=== PATIENT | female | born 1995 | race Caucasian/White ===

== ENCOUNTER 2018-02-12 19:19 | Emergency (ER) | payer BC ==
[2018-02-12 20:37] VITALS: BP 120/69
--- NOTE | 2018-02-12 20:55 | UC ---
Hand/Wrist HPI - HPI Summary HPI Summary: Patient had her right wrist and hand on a wall last I will sleeping complains of pain and swelling into her wrist. Range of motion no skin or superficial injury observed - History Of Current Complaint Chief Complaint: UCUpperExtremity Stated Complaint: R HAND/WRIST INJURY Time Seen by Provider: 02/12/18 20:52 Hx Obtained From: Patient Hx Last Menstrual Period: 01/29/18 ?: No Mechanism Of Injury: hit right hand on the wall Onset/Duration: Sudden Onset Severity Initially: Moderate Severity Currently: Moderate Pain Intensity: 7 Pain Scale Used: 0-10 Numeric Character Of Pain: Aching Aggravating Factor(s): Movement Alleviating Factor(s): Nothing Associated Signs And Symptoms: Positive: Swelling, Bruising Related History: Dominant Hand Right - Allergies/Home Medications Allergies/Adverse Reactions: Allergies Allergy/AdvReac Type Severity Reaction Status Date / Time No Known Allergies Allergy Verified 02/12/18 20:33 Home Medications: Home Medications Oral Contraceptive 1 tab PO DAILY 02/12/18 [History Confirmed 02/12/18] Ranitidine TAB (NF) [Zantac TAB (NF)] 150 mg PO BID 02/12/18 [History Confirmed 02/12/18] PMH/Surg Hx/FS Hx/Imm Hx Previously Healthy: No GI/ History: Gastroesophageal Reflux - Surgical History Surgical History: Yes Surgery Procedure, Year, and Place: Left Shoulder surgery - Family History Known Family History: Positive: None - Social History Occupation: Employed Full-time Lives: With Family Alcohol Use: Occasionally Substance Use Type: None Smoking Status (MU): Former Smoker Type: Cigarettes Amount Used/How Often: 2 packs per week Length of Time of Smoking/Using Tobacco: 3 years Have You Smoked in the Last Year: Yes When Did the Patient Quit Smoking/Using Tobacco: Quit 4 months ago Review of Systems Constitutional: Negative Skin: Negative Eyes: Negative ENT: Negative Respiratory: Negative Cardiovascular: Negative Gastrointestinal: Negative Genitourinary: Negative Motor: Negative Neurovascular: Negative Musculoskeletal: Arthralgia - Right hand and wrist pain Neurological: Negative Psychological: Negative Is Patient Immunocompromised?: No All Other Systems Reviewed And Are Negative: Yes Physical Exam Triage Information Reviewed: Yes Appearance: Well-Appearing, No Pain Distress, Well-Nourished Vital Signs: Initial Vital Signs Temp 98.8 F 02/12/18 20:31 Pulse 67 02/12/18 20:31 Resp 14 02/12/18 20:31 BP 120/69 02/12/18 20:31 Pulse Ox 100 02/12/18 20:31 Vital Signs Reviewed: Yes Eye Exam: Normal Eyes: Positive: Conjunctiva Clear ENT Exam: Normal ENT: Positive: Normal ENT inspection, Hearing grossly normal. Negative: Nasal congestion, Trismus, Muffled voice, Hoarse voice Dental Exam: Normal Neck exam: Normal Neck: Positive: Supple, Nontender Respiratory Exam: Normal Respiratory: Positive: Chest non-tender, No respiratory distress, No accessory muscle use Cardiovascular Exam: Normal Cardiovascular: Positive: RRR, Pulses Normal, Brisk Capillary Refill Musculoskeletal Exam: Other Musculoskeletal: Positive: ROM Intact, No Edema, Strength Limited @ - Patient states strength in right hand is limited due to pain Neurological Exam: Normal Neurological: Positive: Alert, Muscle Tone Normal Psychological Exam: Normal Skin Exam: Normal Diagnostics - Radiology No standard instances Xray Interpretation: No Acute Changes Radiology Interpretation Completed By: Radiologist Hand/Wrist Course/Dx - Course Course Of Treatment: Geovanny wrap applied, rest ice elevation, ibuprofen on fork for a couple days as patient provides correct personal-care and feels that she can safely lift her transfer her residence - Differential Dx/Diagnosis Provider Diagnoses: Contusion right hand and wrist Discharge - Sign-Out/Discharge Documenting (check all that apply): Discharge/Admit/Transfer - Discharge Plan Condition: Stable Disposition: HOME Patient Education Materials: Ibuprofen (By mouth), Contusion in Adults (ED), R.I.C.E. Treatment (ED) Forms: *Work Release Referrals: Mesfin Allen MD [Medical Doctor] - If Needed - Billing Disposition and Condition Condition: STABLE Disposition: HOME
--- NOTE | 2018-02-12 21:59 | RAD ---
Indication: Right hand injury. 4 views of the right hand demonstrates no definite fracture noted. There is a radiopaque foreign body in the soft tissues of the radial aspect of the proximal phalanx of the third digit. IMPRESSION: No fracture is noted. Foreign body in the soft tissues in the radial aspect of the third digit in the proximal phalanx region.
--- NOTE | 2018-02-12 22:06 | RAD ---
Indication: Right wrist injury 3 views of the wrist demonstrates no fracture. No other bone or joint abnormality is identified. IMPRESSION: NO FRACTURE OF THE WRIST IS NOTED.
== END 2018-02-12 22:21 | disposition home or self-care (01) ==
LOC: UCCORT 19:19
DX: S60.211A Contusion of right wrist, initial encounter (principal); W22.8XXA Striking against or struck by other objects, initial encounter; Y92.9 Unspecified place or not applicable; Z87.891 Personal history of nicotine dependence
CPT/HCPCS: 99212; G0463

== ENCOUNTER 2018-07-05 14:25 | Emergency (ER) | payer SELFPAY ==
[2018-07-05] MEDS ORDERED: Tetan/Diph/Pertus SYR(Tdap)* 0.5 ML SYR(BOOSTRIX) use SYR IM ONE (15:15)
[2018-07-05 15:21] VITALS: BP 133/62
--- NOTE | 2018-07-05 15:22 | UC ---
Laceration HPI - HPI Summary HPI Summary: 23-year-old female presents with a laceration to her left palmar middle finger. States she accidentally cut it on the edge of an aluminum can. Bleeding was controlled with direct pressure. Denies numbness, tingling or loss of range of motion. Unsure last tetanus. - History Of Current Complaint Stated Complaint: WC-LACERATION LEFT MIDDLE FINGER Time Seen by Provider: 07/05/18 15:13 Hx Obtained From: Patient Hx Last Menstrual Period: 01/29/18 Laceration Location: Hand - Left middle finger Mechanism Of Injury: Sharp Trauma - Edge of aluminum can Aggravating Factors: Nothing Hands: 1 - 1 cm superficial flap laceration Related History: Dominant Hand Right - Allergies/Home Medications Allergies/Adverse Reactions: Allergies Allergy/AdvReac Type Severity Reaction Status Date / Time ibuprofen Allergy Unknown RASH ON Verified 07/05/18 15:10 NECK, HARD TO SWALLOW Home Medications: Home Medications Amphetamine MIXED SALTS TAB* [Adderall TAB*] 15 mg PO DAILY 07/05/18 [History Confirmed 07/05/18] Apri- Oral Contraceptive 1 tab PO DAILY 07/05/18 [History] Sertraline* [Zoloft*] 100 mg PO DAILY 07/05/18 [History Confirmed 07/05/18] PMH/Surg Hx/FS Hx/Imm Hx Previously Healthy: Yes GI/ History: Gastroesophageal Reflux Psychological History: Anxiety Other Psychological History: ADHD - Surgical History Surgical History: Yes Surgery Procedure, Year, and Place: Left Shoulder surgery - Family History Family History: Noncontributory - Social History Occupation: Employed Full-time Lives: With Family Alcohol Use: Occasionally Substance Use Type: None Smoking Status (MU): Former Smoker Type: Cigarettes Amount Used/How Often: 2 packs per week Length of Time of Smoking/Using Tobacco: 3 years Have You Smoked in the Last Year: Yes When Did the Patient Quit Smoking/Using Tobacco: Quit 4 months ago - Immunization History Immunizations Comment: unsure last tetanus Review of Systems Constitutional: Negative Skin: Other - See history of present illness Motor: Negative Neurovascular: Negative Musculoskeletal: Negative Is Patient Immunocompromised?: No All Other Systems Reviewed And Are Negative: Yes Physical Exam Triage Information Reviewed: Yes Appearance: Well-Appearing, No Pain Distress, Well-Nourished Vital Signs Reviewed: Yes Respiratory: Positive: No respiratory distress Cardiovascular: Positive: Pulses Normal, Brisk Capillary Refill Musculoskeletal: Positive: Strength Intact, ROM Intact - Flexion and extension to resistance intact Neurological: Positive: Alert, Other: - Sensation intact distally Skin: Positive: significant lesion(s) - 1 cm superficial laceration to palmar aspect of left middle finger immediately superior to the DIP. Laceration Repair - Laceration Repair 1 Description: Linear Laceration Size After Repair: Length (cm) - 1 Modified For Repair: No Cleansing Completed Via Routine Prep: Yes Irrigation With Pressure Irrigation Device: Yes Closure Material: Skin Adhesive, SteriStrips - Single 1/8 inch Steri-strip Laceration Course/Dx - Course/Dx Course Of Treatment: 23-year-old female presents with a superficial laceration of her left middle finger on the palmar aspect immediately superior to the DIP. Laceration occurred from sharp edge of a aluminum can. Flexion and extension to resistance intact. Sensation intact distally. Wound was cleansed and then repaired using skin adhesive and a single 1/8 inch Steri-strip. Patient was placed in a volar finger splint to allow for healing. Wound care and warning signs of infection were discussed with the patient. Verbalizes understanding and agrees with plan of care. - Differential Dx - Laceration/Wound Provider Diagnoses: Superficial laceration left middle finger Discharge - Sign-Out/Discharge Documenting (check all that apply): Patient Departure All imaging exams completed and their final reports reviewed: No Studies - Discharge Plan Condition: Stable Disposition: HOME Patient Education Materials: Laceration (ED), Skin Adhesive Care (ED) Referrals: Kaitlynn Smith MD [Primary Care Provider] - If Needed Additional Instructions: The laceration to your left middle finger was repaired today using a skin adhesive and Steri-Strip. Do not get this wet for at least 24 hours. After 24 hours you may go ahead and shower and wash your hands as normal. Keep the wound covered with a bandage to avoid contamination. Do not apply any ointments or lotions as this could dissolve the adhesive can cause reopening of the wound. The Steri-Strip will slowly start to peel up from the ends. You may trim the ends but do not pull the Steri-strip as this may cause a reopening of the wound. Your tetanus was updated today. Be sure to notify your primary care provider so (s)he can update their records. Watch for signs of infection including fever greater than 100.5 F, increased pain, redness that spreads, swelling of the finger, or pus draining from the wound. Seek immediate medical attention should any of these occur. - Billing Disposition and Condition Condition: STABLE Disposition: Home
== END 2018-07-05 16:10 | disposition home or self-care (01) ==
LOC: UCCORT 14:25
DX: S61.213A Laceration without foreign body of left middle finger without damage to nail, initial encounter (principal); Z87.891 Personal history of nicotine dependence; W26.8XXA Contact with other sharp object(s), not elsewhere classified, initial encounter; Y93.9 Activity, unspecified; Y92.9 Unspecified place or not applicable
CPT/HCPCS: 12001; 90471; 90715; 99212; G0463

== ENCOUNTER 2019-11-26 11:11 | Emergency (ER) | payer BC ==
--- OUTSIDE RECORDS SUMMARY | 2019-11-26 11:18 | XMS REPORT | Continuity of Care Document ---
:1995 External Reference #:[id number] Author Name Cathy Patel, PNP-BC, IT SUPPORT ANALYST, [facility] Address [address] [place] [address] Care Team Providers Name Role Phone Kaitlynn Smith MD - Pediatrics Care Team Information Nurseryperson [phone] [facility] Care Team Information Nurseryperson pc - Physical Therapy Cathy Patel PNP-BC, IT SUPPORT ANALYST, [place]cl[facility] Care Team Information Nurseryperson [phone] - Family Problems Active Problems Provider Date Joint derangement Adam Botello MD Onset: 09/25/2011 Arthralgia of the pelvic region and thigh Adam Botello MD Onset: 01/21 Social History Type Date Description Comments Sex Unknown Tobacco Use Start: Unknown Never Smoked Cigarettes ETOH Use Denies alcohol use ETOH Use Occasionally consumes alcohol Recreational Drug Use Marijuana Tobacco Use Start: Unknown End: Patient is a former smoker Unknown Smoking Status Reviewed: 10/26/19 Patient is a former smoker Allergies, Adverse Reactions, Alerts Active Allergies Reaction Severity Comments Date No Known Drug Allergy 01/21/2011 Medications Active Medications SIG Qnty Indications Ordering Date Provider Trazodone HCL 1-2 by mouth every 60tabs F41.9 Cathy Patel, 10/26/2019 50mg night at bedtime PNP-BC, IT SUPPORT ANALYST, Tablets as needed Ib[facility] Prazosin HCL 1 at bedtime 30caps G47.00 Cathy Patel, 10/26/2019 1mg PNP-BC, IT SUPPORT ANALYST, Capsules [facility]cl[facility] Venlafaxine HCL ER 1 cap per day and 60caps F33.1 Cathy Patel, 2019 in 2 weeks PNP-FLAVIO IT SUPPORT ANALYST, 37.5mg Caps ER 24HR increase to 2 caps [facility] Esomeprazole 1 by mouth once a 30caps K21.9 Cathy Patel, 09/05/2019 Magnesium day PNP-ROMELIA MUNIZP, 20mg Capsules Ibcl[facility] Alprazolam 1 tab po tid as 60tabs Cathy Patel, 0.25mg needed Reference PNP-BC IT SUPPORT ANALYST, Tablets #: [id number] Ibcl[facility] History Medications Escitalopram Oxalate 1 by mouth every 60tabs F41.9 Cathy Patel, 2018 - day for 1 week BILLY IT SUPPORT ANALYST, 10/20/2019 10mg Tablets and then up it to [facility] 2 tablets Buspirone HCL take 2 tablet by 120tabs Cathy Patel, 09/14/2019 - 5mg mouth four times PNP-FLAVIO, IT SUPPORT ANALYST, 10/20/2019 Tablets daily as needed [facility]cl[facility] Hydroxyzine HCL 1-2 tabs at 60tabs F41.9 Cathy Patel, 09/05/2019 - 25mg bedtime DOMINIK-ROMELIA MUNIZP, 10/26/2019 Tablets Ibcl[facility] Sertraline HCL 1 by mouth every 60tabs F41.9 Cathy Patel, 09/05/2019 - 50mg day for 2 weeks BILLY IT SUPPORT ANALYST, 09/21/2019 Tablets and then increase Ibclc to 2 tabs every day Clonidine HCL take one to two 120tabs F41.9 Cathy Patel, 09/05/2019 - 0.1mg tablets by mouth DOMINIK-FLAVIO, IT SUPPORT ANALYST, 09/21/2019 Tablets four times a day Ibclc as needed Immunizations CPT Code Status Date Vaccine Lot # [id number] Given 05/01/1998 MMR Vaccine, Live, For Subcutaneous Use 95332 Given 1995 Hepatitis B Vaccine Pediatric/Adolescent 48519 Given 1995 DTP Toxoids & Hib Vaccine 86313 Given 1995 Poliovirus Vaccine Oral 67471 Given 1997 DTP Toxoids & Hib Vaccine 01263 Given 1995 Poliovirus Vaccine Oral 84929 Given 1995 Hepatitis B Vaccine Pediatric/Adolescent 74332 Given 1997 DTP Toxoids & Hib Vaccine 05422 Given 1997 Poliovirus Vaccine Oral Vital Signs Date Vital Result Comment 10/26/2019 10:44am BP Systolic 112 mmHg BP Diastolic 80 mmHg Body Temperature 97.7 F Heart Rate 90 /min Respiratory Rate 17 /min Height 61.5 inches 5'1.50" Weight 133.00 lb BMI (Body Mass Index) 24.7 kg/m2 BSA (Body Surface Area) 1.60 m2 [place] body weight in kilograms 49 kg O2 % BldC Oximetry 98 % 09/21/2019 9:17am Respiratory Rate 18 /min Height 61.5 inches 5'1.50" Weight 133.00 lb BMI (Body Mass Index) 24.7 kg/m2 BSA (Body Surface Area) 1.60 m2 [place] body weight in kilograms 49 kg Results Test Acquired Date Facility Test Result H/L Range Note CBC 10/17/2019 [facility] White Blood 12.3 K/uL High 3.1-10.7 1 W/Automated [address] [place] [address] [phone] Red Blood Count 4.73 M/uL Normal 3.90-5.40 Hemoglobin 14.5 gm/dL Normal 11.6-15.8 Hematocrit 42.3 % Normal 36.0-46.1 Mean Cell Volume 89.4 fl Normal 80.9-99.0 Mean Corpuscular HGB 30.7 pg Normal 25.9-32.7 Mean Corpuscular HGB Conc 34.3 g/dL Normal 30.8-34.3 Platelet Count 354 K/uL Normal 155-360 Red Cell Distri Width SD 45.2 fl Normal 36-47 Red Cell Distri Width %CV 13.9 % Normal 11.7-14.4 Mean Platelet Volume 9.0 fl Normal 8.9-12.4 Neut% 77.1 % High 40.4-72.8 Lymph % 16.5 % Low 20.0-42.0 [place] % 5.2 % Normal 4.3-13.2 Eo% 0.2 % Normal 0.0-6.6 Bas% 0.4 % Normal 0.0-1.1 Immature Grans 0.6 % Normal 0.0-5.0 NRBC % 0.0 /100WBC < 10/ 100 WBC Neut# 9.51 K/uL High 1.8-7.0 Lymph # 2.03 K/uL Normal 1.0-4.0 [place] # 0.64 K/uL Normal 0.3-0.9 Eos # 0.03 K/uL Normal 0.0-0.5 Baso # 0.05 K/uL Normal 0.0-0.1 Immature Grans Absolute 0.07 K/uL NRBC # 0.00 K/uL Laboratory 10/17/2019 [facility] HCG,Serum NEGATIVE (Negative) 2 test finding [address] (Qualitative) [place] [address] [phone] Salicylate 2.2 mg/dL < 15.0 3 Acetaminophen < 2.0 ug/mL Low 10.0-30.0 4 Ethyl Alcohol < 3.0 mg/dL Comprehensive 10/17/2019 [facility] Glucose 86 mg/dL Normal 74-106 Metabolic Panel [address] [place] [address] [phone] BUN 11 mg/dL Normal 7-18 Creatinine 0.7 mg/dL Normal 0.6-1.3 Glom Filtration Rate, Estimate >60 mL/min >60 If >60 mL/min >60 5 BUN/Creat 15.7 ratio Sodium 138 mmol/L Normal 136-145 Potassium 3.7 mmol/L Normal 3.5-5.1 Chloride 109 mmol/L High 98-107 Carbon Dioxide 24 mmol/L Normal 21-32 Anion Gap 5 mEq/L Low 8-16 Calcium 8.8 mg/dL Normal 8.5-10.1 Total Protein 7.5 g/dL Normal 6.4-8.2 Albumin 3.9 g/dL Normal 3.4-5.0 Globulin 3.6 g/dL Normal 1.9-4.3 Alb/Glob 1.1 ratio Bilirubin,Total 0.4 mg/dL Normal 0.2-1.0 Sgot/Ast 7 U/L Low 15-37 6 SGPT/Alt 20 U/L Normal 12-78 Alkaline Phosphatase 54 U/L Normal 45-117 Ua RFX Micro & Culture 10/17/2019 [facility] Urine Color Yellow Yellow II [address] [place] [address] [phone] Urine Clarity Slightly Cloudy Clear Urine Glucose - Dipstick NEGATIVE mg/dL Negative Urine Bilirubin - Dipstick NEGATIVE Negative Urine Ketone NEGATIVE mg/dL Negative Urine Specific [place] 1.025 Normal 1.010-1.030 Urine Blood NEGATIVE Negative Urine PH 6.0 Low 6.5-7.5 Urine Protein - Dipstick TRACE mg/dL Negative Urine Urobilinogen - Dipstick < 2.0 mg/dL < 2.0 Urine Nitrite - Dipstick NEGATIVE Negative Urine Leuk Esterase NEGATIVE Negative Source: URINE, CLEAN CAT <SEE NOTE> 7 Drugs Of 10/17/2019 [facility] Amphetamines (Urine) Negative Abuse-Urine Screen [address] [place] [address] [phone] Barbiturates (Urine) Negative Benzodiazepines (Urine) Negative Cannabinoids (Urine) POSITIVE Abnormal Cocaine Metabolite (Urine) Negative Methadone (Urine) Negative Opiates (Urine) Negative Urine Cutoffs * 8 1 EVAL 2 Method: [place] [employer] One-Step Immunoassay 3 Analgesic: < 10 mg/dL Anti-Inflammatory: 15-30 mg/dL 4 Acetaminophen concentration >150 ug/mL at four hours after ingestion and 50.0 ug/mL at twelve hours after ingestion are often associated with toxic reactions. 5 Note: Persistent reduction for 3 months or more in an eGFR <60 mL/min/1.73 m2 defines CKD. Patients with eGFR values >/=60 mL/min/1.73 m2 may also have CKD if evidence of persistent proteinuria is present. The original MDRD equation for estimated GFR is not valid for patients less than 18 years of age. Additional information may be found at www.kdoqi.org. 6 Values below the stated reference ranges of AST and ALT can be seen in normal populations. Clinical correlation is suggested. 7 URINE, CLEAN CATCH 8 URINE SPECIMENS ARE SCREENED AT THE LISTED CUTOFFS DRUG CLASS INITIAL TEST LEVEL Amphetamines 1000 ng/mL Barbiturates 200 ng/mL Benzodiazepines 200 ng/mL Cannabinoids 50 ng/mL Cocaine Metabolite 300 ng/mL Methadone 300 ng/mL Opiates 300 ng/mL Any PRESUMPTIVE POSITIVE findings are UNCONFIRMED. Confirmatory testing is suggested if findings are unexpected. Please contact laboratory if confirmatory testing is desired. SPECIMENS ARE HELD FOR 72 HOURS. Procedures Date Code Description Status 10/26/2019 25602 Brief Emotional/Behav Assessment W/ Scoring Doc Per Completed Standard Inst 10/20/2019 76839 Refraction Completed 10/20/2019 81070 Eye Exam New Patient Comprehensive Completed 09/21/2019 61040 Brief Emotional/Behav Assessment W/ Scoring Doc Per Completed Standard Inst 09/05/2019 69172 Brief Emotional/Behav Assessment W/ Scoring Doc Per Completed Standard Inst Medical Devices Description No Information Available Encounters Type Date Location Provider Dx Diagnosis Office Visit 10/26/2019 Family Medicine Cathy Patel, F33.1 Major depressive 10:[address]a [address] PNP-BC, IT SUPPORT ANALYST, disorder, Ibcl[facility] recurrent, moderate F41.9 Anxiety disorder, unspecified G47.00 Insomnia, unspecified Office Visit 09/21/2019 9:15a Family Medicine Cathy Patel, F41.9 Anxiety disorder, [address] PNP-BC, IT SUPPORT ANALYST, unspecified Ibcl[facility] F33.1 Major depressive disorder, recurrent, moderate Assessments Date Code Description Provider 10/26/2019 F33.1 Major depressive disorder, Cathy Patel, PNP-BC, IT SUPPORT ANALYST, recurrent, moderate [facility] 10/26/2019 F41.9 Anxiety disorder, unspecified Cathy Patel, PNP-BC, IT SUPPORT ANALYST, [facility] 10/26/2019 G47.00 Insomnia, unspecified Cathy Patel, PNP-BC, IT SUPPORT ANALYST, Ibcl[facility] 10/20/2019 H04.123 Dry eye syndrome of bilateral Konstantin Shin MD lacrimal glands 10/20/2019 H52.13 Myopia, bilateral Konstantin Shin MD 10/18/2019 F33.1 Major depressive disorder, Chema Long M.D. recurrent, moderate 10/18/2019 F41.9 Anxiety disorder, unspecified Chema Long M.D. 09/21/2019 F41.9 Anxiety disorder, unspecified Cathy Patel, PNP-BC, IT SUPPORT ANALYST, Ibcl[facility] 09/21/2019 F33.1 Major depressive disorder, Cathy Patel, PNP-BC, IT SUPPORT ANALYST, recurrent, moderate Ibcl[facility] 09/05/2019 Z00.01 Encounter for general adult medical Cathy Patel PNP-BC , IT SUPPORT ANALYST, examination with abnormal findings Ibcl[facility] 09/05/2019 F41.9 Anxiety disorder, unspecified Cathy Patel, PNP-BC, IT SUPPORT ANALYST, Ibcl[facility] 09/05/2019 F33.1 Major depressive disorder, Cathy Patel, PNP-BC, IT SUPPORT ANALYST, recurrent, moderate Ibcl[facility] 09/05/2019 F90.0 Attention-deficit hyperactivity Cathy Patel PNP-BC, IT SUPPORT ANALYST, disorder, predominantly inattentive [facility]cl[facility] type 09/05/2019 K21.9 Gastro-esophageal reflux disease Cathy Patel PNP-FLAVIO, IT SUPPORT ANALYST , without esophagitis Ibclc Plan of Treatment Future Appointment(s):11/29/2019 1:15 pm - Cathy Patel PNP-FLAVIO, EMELY, [facility] at [facility] RD10/26/2019 - Cathy Patel PNP-BC, FNP, YowsbK85.1 Major depressive disorder, recurrent, moderateNew Medication:Venlafaxine HCL ER 37.5 mg - 1 cap per day and in 2 weeks increase to 2 capsComments:since you've had significant side effects from 2 SSRI's now we'll switch groups and see if we get a better responses. Don't feel like you have to suffer through the side effects, if they aren't getting better after about 2 weeks let me know. and we can change it. if you are tolerating it ok and youhaven't noticed any changes then increase to 2 tablets once a day.Follow up:1 [id number] Anxiety disorder, unspecifiedNew Medication:Trazodone HCL 50 mg - 1-2 by mouth every night at bedtime as neededComments:since we know the trazodone works we'll go with it. but try the prazosin first as that might be enough but you can take them together.G47.00 Insomnia, unspecifiedNew Medication:Prazosin HCL 1 mg - 1 at bedtimeComments:if we need to increase the dose of the prazosin we can but we' ll start with 1mg and see how it goes. Functional Status Description No Information Available Mental Status Description No Information Available Referrals Description No Information Available
--- OUTSIDE RECORDS SUMMARY | 2019-11-26 11:18 | XMS REPORT | Continuity of Care Document ---
:1995 External Reference #:[id number] Author Name Konstantin Shin MD Address [address] [place] [address] Care Team Providers Name Role Phone Kaitlynn Smith MD - Pediatrics Care Team Information [employer] [facility] Care Team Information [employer] [phone] - Physical Therapy Cathy Patel PNP-BC, CYTOTECHNOLOGIST/CYTOLOGY SUPERVISOR, Ibclc Care Team Information [employer] [phone] - Family Problems Active Problems Provider Date [...] a former smoker Unknown Smoking Status Reviewed: 10/20/19 Patient is a former smoker Allergies, Adverse Reactions, Alerts Active Allergies Reaction Severity Comments Date No Known Drug Allergy 01/21/2011 Medications Active Medications SIG Qnty Indications Ordering Provider Date Hydroxyzine HCL 1-2 tabs at 60tabs F41.9 Cathy Patel, 09/05/2019 25mg bedtime PNP-BC, CYTOTECHNOLOGIST/CYTOLOGY SUPERVISOR, Tablets Ibclc ANAT Esomeprazole 1 by mouth once 30caps K21.9 Cathy Patel, 09/05/2019 Magnesium a day PNP-BC, CYTOTECHNOLOGIST/CYTOLOGY SUPERVISOR, 20mg Capsules Ibclc Alprazolam Unknown 0.25mg Tablets History Medications Escitalopram Oxalate 1 by mouth every 60tabs F41.9 Cathy Patel, 2018 - day for 1 week [facility]- CYTOTECHNOLOGIST/CYTOLOGY SUPERVISOR, 10/20/2019 10mg Tablets and then up it to Ibcl[facility] 2 tablets Buspirone HCL take 2 tablet by 120tabs Cathy Patel, 09/14/2019 - 5mg mouth four times [facility]-BC, CYTOTECHNOLOGIST/CYTOLOGY SUPERVISOR, 10/20/2019 Tablets daily as needed [facility]cl[facility] Sertraline HCL 1 by mouth every 60tabs F41.9 Cathy Patel, 09/05/2019 - 50mg day for 2 weeks [facility]- CYTOTECHNOLOGIST/CYTOLOGY SUPERVISOR, 09/21/2019 Tablets and then increase Ibclc to 2 tabs every day Clonidine HCL take one to two 120tabs F41.9 Cathy Patel, 09/05/2019 - 0.1mg tablets by mouth [facility]- CYTOTECHNOLOGIST/CYTOLOGY SUPERVISOR, 09/21/2019 Tablets four times a day Ibclc as needed Immunizations CPT Code Status Date Vaccine Lot # [id number] Given 05/01/1998 MMR Vaccine, Live, For Subcutaneous Use 36910 Given 1997 Hepatitis B Vaccine Pediatric/Adolescent 87091 Given 1997 DTP Toxoids & Hib Vaccine 99972 Given 1997 Poliovirus Vaccine Oral 25376 Given 1997 DTP Toxoids & Hib Vaccine 48105 Given 1997 Poliovirus Vaccine Oral 50456 Given 1997 Hepatitis B Vaccine Pediatric/Adolescent 56320 Given 1997 DTP Toxoids & Hib Vaccine 39903 Given 1997 Poliovirus Vaccine Oral Vital Signs Date Vital Result Comment 09/21/2019 9:17am Respiratory Rate 18 /min Height 61.5 inches 5'1.50" Weight 133.00 lb BMI (Body Mass Index) 24.7 kg/m2 BSA (Body Surface Area) 1.60 m2 [place] body weight in kilograms 49 kg 09/05/2019 1:40pm BP Systolic 130 mmHg BP Diastolic 77 mmHg Body Temperature 98.4 F Heart Rate 82 /min Respiratory Rate 18 /min Height 61.5 inches 5'1.50" Weight 129.00 lb BMI (Body Mass Index) 24.0 kg/m2 BSA (Body Surface Area) 1.58 m2 [place] body weight in kilograms 49 kg O2 % BldC Oximetry 98 % Ra Results Test Acquired Date Facility Test Result H/L Range Note CBC 10/17/2019 [facility] White Blood 12.3 K/uL High 3.1-10.7 1 W/Automated [address] [place] [address] [phone] Red Blood Count 4.73 M/uL Normal 3.90-5.40 [...] 40.4-72.8 Lymph % 16.5 % Low 20.0-42.0 [place] % 5.2 % Normal 4.3-13.2 Eo% 0.2 % Normal 0.0-6.6 Bas% 0.4 % Normal 0.0-1.1 Immature Grans 0.6 % Normal 0.0-5.0 NRBC % 0.0 /100WBC < 10/ 100 WBC Neut# 9.51 K/uL High 1.8-7.0 Lymph # 2.03 K/uL Normal 1.0-4.0 [place] # 0.64 K/uL Normal 0.3-0.9 Eos # 0.03 K/uL Normal 0.0-0.5 Baso # 0.05 K/uL Normal 0.0-0.1 Immature Grans Absolute 0.07 K/uL NRBC # 0.00 K/uL Laboratory 10/17/2019 [facility] HCG,Serum NEGATIVE (Negative) 2 test finding [address] (Qualitative) [place] [address] [phone] Salicylate 2.2 mg/dL < 15.0 3 Acetaminophen < 2.0 ug/mL Low 10.0-30.0 4 Ethyl Alcohol < 3.0 mg/dL Comprehensive 10/17/2019 [facility] Glucose 86 mg/dL Normal 74-106 Metabolic Panel [address] [place] [address] [phone] BUN 11 mg/dL Normal 7-18 Creatinine 0.7 [...] 45-117 Ua RFX Micro & Culture 10/17/2019 [facility] Urine Color Yellow Yellow II [address] [place] [address] [phone] Urine Clarity Slightly Cloudy Clear Urine Glucose - Dipstick NEGATIVE mg/dL Negative Urine Bilirubin - Dipstick NEGATIVE Negative Urine Ketone NEGATIVE mg/dL Negative Urine Specific [place] 1.025 Normal 1.010-1.030 Urine Blood NEGATIVE Negative Urine PH 6.0 Low 6.5-7.5 Urine Protein - Dipstick TRACE mg/dL Negative Urine Urobilinogen - Dipstick < 2.0 mg/dL < 2.0 Urine Nitrite - Dipstick NEGATIVE Negative Urine Leuk Esterase NEGATIVE Negative Source: URINE, CLEAN CAT <SEE NOTE> 7 Drugs Of 10/17/2019 [facility] Amphetamines (Urine) Negative Abuse-Urine Screen [address] [place] [address] [phone] Barbiturates (Urine) Negative Benzodiazepines (Urine) Negative Cannabinoids (Urine) POSITIVE Abnormal Cocaine Metabolite (Urine) Negative Methadone (Urine) Negative Opiates (Urine) Negative Urine Cutoffs * 8 1 EVAL 2 Method: Quidel QuickVue One-Step Immunoassay 3 Analgesic: < 10 mg/dL [...] 72 HOURS. Procedures Date Code Description Status 10/20/2019 09235 Eye Exam New Patient Comprehensive Completed 09/21/2019 04677 Brief Emotional/Behav Assessment W/ Scoring Doc Per Completed [facility] 09/05/2019 22963 Brief Emotional/Behav Assessment W/ Scoring Doc Per Completed [facility] Medical Devices Description No Information Available Encounters Type Date Location Provider Dx Diagnosis Office Visit 09/21/2019 Family Medicine Cathy Patel, F41.9 Anxiety disorder, 9:[address] PNP-BC, CYTOTECHNOLOGIST/CYTOLOGY SUPERVISOR, unspecified Ibclc F33.1 Major depressive disorder, recurrent, moderate Assessments Date Code Description Provider 10/20/2019 H04.123 Dry eye syndrome of bilateral Konstantin Shin MD lacrimal glands 10/20/2019 H52.13 Myopia, bilateral Konstantin Shin MD 10/18/2019 F33.1 Major depressive disorder, Chema Long M.D. recurrent, moderate 10/18/2019 F41.9 Anxiety disorder, unspecified Chema Long M.D. 09/21/2019 F41.9 Anxiety disorder, unspecified Cathy Patel, PNP-BC, CYTOTECHNOLOGIST/CYTOLOGY SUPERVISOR, Ibclc 09/21/2019 F33.1 Major depressive disorder, Cathy Patel PNP-BC, CYTOTECHNOLOGIST/CYTOLOGY SUPERVISOR, recurrent, moderate Ibcl[facility] 09/05/2019 Z00.01 Encounter for general adult medical Cathy Patel PNP-BC , EMELY, examination with abnormal findings Ibclc 09/05/2019 F41.9 Anxiety disorder, unspecified Cathy Patel PNP-BC, EMELY, [facility]cl[facility] 09/05/2019 F33.1 Major depressive disorder, Cathy Patel PNP-BC, CYTOTECHNOLOGIST/CYTOLOGY SUPERVISOR, recurrent, moderate [facility]cl[facility] 09/05/2019 F90.0 Attention-deficit hyperactivity Cathy Patel PNP-BC, FNP, disorder, predominantly inattentive [facility]cl[facility] type 09/05/2019 K21.9 Gastro-esophageal reflux disease Cathy Patel PNP-BC, EMELY , without esophagitis [facility]cl[facility] Plan of Treatment Future Appointment(s):10/26/2019 10:45 am - Cathy Ptael PNP-BC, FNP, [facility]cl[facility] at [facility] RD10/20/2019 - Konstantin Shin, MDH04.123 Dry eye syndrome of bilateral lacrimal glandsComments:- if bothersome, please consider:- warm compresses- artificial tears both eyes- consider ointment atnight- can consider punctal occlusion or restasisFollow up:2 year or as needed; examH52.13 Myopia, bilateralComments:- provided updated rx for glasses- visual acuity 20/20 in each eye Functional Status Description No Information Available Mental Status Description No Information Available Referrals Description No Information Available
[2019-11-26 12:07] VITALS: BP 127/85
--- NOTE | 2019-11-26 12:25 | UC ---
Complaint Female HPI - HPI Summary HPI Summary: 24 year old female with burning on urination, frequency, low back pain starting yesterday and today with blood in her urine. - History Of Current Complaint Chief Complaint: UCGU Stated Complaint: URINARY Time Seen by Provider: 11/26/19 12:05 Hx Obtained From: Patient Hx Last Menstrual Period: 11/16/2019 ?: No Onset/Duration: Gradual Onset Timing: Intermittent Severity Initially: Mild Severity Currently: Mild Pain Intensity: 6 Character: Burning Aggravating Factor(s): Urination Alleviating Factor(s): Nothing Associated Signs And Symptoms: Positive: Negative - Allergies/Home Medications Allergies/Adverse Reactions: Allergies Allergy/AdvReac Type Severity Reaction Status Date / Time ibuprofen Allergy Unknown RASH ON Verified 11/26/19 12:04 NECK, HARD TO SWALLOW Home Medications: Home Medications ALPRAZolam TAB* [Xanax TAB*] 0.5 mg PO TID PRN 11/26/19 [History Confirmed 11/26] Esomeprazole Magnesium [Nexium] 40 mg PO DAILY 11/26/19 [History Confirmed 11/26] ValACYclovir (*) [Valtrex 500 mg (*)] 500 mg PO DAILY 11/26/19 [History Confirmed 11/26/19] traZODone TAB* [Desyrel TAB*] 50 mg PO BEDTIME 11/26/19 [History Confirmed 11/26] PMH/Surg Hx/FS Hx/Imm Hx Previously Healthy: Yes Psychological History: Anxiety, Other - ADHD - Surgical History Surgical History: Yes Surgery Procedure, Year, and Place: Left Shoulder surgery - Family History Known Family History: Positive: None Family History: Noncontributory - Social History Alcohol Use: Occasionally Substance Use Type: None Smoking Status (MU): Former Smoker Type: Cigarettes Amount Used/How Often: 2 packs per week Length of Time of Smoking/Using Tobacco: 3 years Have You Smoked in the Last Year: Yes When Did the Patient Quit Smoking/Using Tobacco: 2014 - Immunization History Immunizations Comment: unsure last tetanus Review of Systems All Other Systems Reviewed And Are Negative: Yes Genitourinary: Positive: Dysuria, Hematuria - Blood in urine today, Frequency, Urgency Is Patient Immunocompromised?: No Physical Exam Triage Information Reviewed: Yes Appearance: Well-Appearing, No Pain Distress, Well-Nourished Vital Signs: Initial Vital Signs Temp 97.9 F 11/26/19 12:02 Pulse 72 11/26/19 12:02 Resp 14 11/26/19 12:02 BP 127/85 11/26/19 12:02 Pulse Ox 100 11/26/19 12:02 Vital Signs Reviewed: Yes Eyes: Positive: Conjunctiva Clear Respiratory: Positive: Lungs clear, Normal breath sounds, No respiratory distress, No accessory muscle use Cardiovascular: Positive: RRR, No Murmur, Pulses Normal, Brisk Capillary Refill Abdomen Description: Positive: Nontender, No Organomegaly, Soft. Negative: CVA Tenderness (R), CVA Tenderness (L), Distended, Guarding, Hepatomegaly, Splenomegaly Bowel Sounds: Positive: Hyperactive - Pt states she's very hungry Musculoskeletal Exam: Normal Neurological Exam: Normal Psychological Exam: Normal Skin Exam: Normal Complaint Female Dx - Course Course Of Treatment: Urine positive for Leuks, blood Pt is comfortable here and in no distress - Differential Dx/Diagnosis Provider Diagnosis: UTI (urinary tract infection) Discharge ED - Sign-Out/Discharge Documenting (check all that apply): Patient Departure All imaging exams completed and their final reports reviewed: No Studies - Discharge Plan Condition: Good Disposition: HOME Prescriptions: Phenazopyridine TAB* [Pyridium 100 mg TAB*] 100 mg PO TID PRN #9 tab PRN Reason: Spasms Sulfamethox/Trimethoprim DS* [Bactrim DS 800/160 TAB*] 1 tab PO BID 5 Days #10 tab Patient Education Materials: Urinary Tract Infection in Women (DC) Referrals: Cathy Patel NP [Primary Care Provider] - Additional Instructions: Increase fluids, go to the ER if you develop fever, chills, vomiting and unable to keep the medicine down. Follow up with your primary care provider in 2-3 days if no improvement - Billing Disposition and Condition Condition: GOOD Disposition: Home
== END 2019-11-26 12:39 | disposition home or self-care (01) ==
LOC: UCCORT 11:11
DX: N39.0 Urinary tract infection, site not specified (principal); R31.9 Hematuria, unspecified; F90.9 Attention-deficit hyperactivity disorder, unspecified type; F41.9 Anxiety disorder, unspecified; Z88.8 Allergy status to other drugs, medicaments and biological substances; Z87.891 Personal history of nicotine dependence; Z79.899 Other long term (current) drug therapy
CPT/HCPCS: 81003; 84702; 87077; 87086; 87186; 99212; G0463